=== PATIENT | male | born 1950 | race Caucasian/White ===

== ENCOUNTER 2019-08-04 02:04 | Emergency (ER) | payer MEDICARE, MEDICAID ==
[~2019-08-04] VITALS: Ht 175.3 cm; Wt 118.0 kg
[~2019-08-04 02:04] MED LIST: ALB0.5UD IH; ASPI-1265 PO; ATOR40TA PO; BECL8.7A3 IH; BUPR100T8 PO; CARB1TAB23 PO; CARI350T PO; DICY10CA88 PO; DOCU100C40 PO; ESCI20TA29 PO; HYDR-3965 PO; INSU100V36 SQ; LANTUS SQ; METF1000 PO; METH10TA4 PO; NITR12SP7 TL
[2019-08-04] MEDS ORDERED: normal saline 1000ML IV soln IVB ONE (02:20)
[2019-08-04] MEDS ORDERED: insulin regular, human 10 units/0.1 ml syringe SQ ONE ×2 (02:20→04:30)
[2019-08-04] MEDS ORDERED: methylPREDNISolone sod succ 125mg/2ml vial IV ONE (02:20)
[2019-08-04] MEDS: albuterol 2.5 MG/3 ML nebule NEB PRN ×2 (02:27→03:58)
[2019-08-04 03:36] LABS: ALANINE AMINOTRANSFERASE 37 U/L (12-78); ALBUMIN 3.5 G/DL (3.4-5.0); ALBUMIN/GLOBULIN RATIO 0.9 (1.1-1.5); ALKALINE PHOSPHATASE 54 IU/L (46-116); ASPARTATE AMINO TRANSFERASE 25 U/L (10-37); BILIRUBIN,TOTAL 1.3 MG/DL (0.1-1.0); BLOOD UREA NITROGEN 12 MG/DL (7-18); CALCIUM 8.7 MG/DL (8.5-10.1); CREATININE 1.33 MG/DL (0.60-1.10); GLUCOSE 281 MG/DL (70-104); TOTAL CARBON DIOXIDE 25.2 MMOL/L (24-32); TOTAL PROTEIN 7.5 G/DL (6.4-8.2); eGFR 54 ML/MIN
[2019-08-04 03:39] LABS: ANION GAP 10 (8-16); CHLORIDE 99 MMOL/L (99-107); SODIUM 134 MMOL/L (135-145)
[2019-08-04 03:44] LABS: BASOPHILS % (AUTO) 0.4 % (0-1); EOSINOPHILS # (AUTO) 0.1 X10'3 (0-0.9); EOSINOPHILS % (AUTO) 0.7 % (0-6); HEMATOCRIT 48.3 % (42.0-52.0); HEMOGLOBIN 16.4 g/dl (14.0-17.9); LYMPHOCYTES # (AUTO) 1.7 X10'3 (1.1-4.8); MEAN CORPUSCULAR HEMOGLOBIN 32.6 PG (27.0-31.0); MEAN CORPUSCULAR HGB CONC 33.9 g/dL (33.0-36.5); MEAN CORPUSCULAR VOLUME 96.1 FL (78-98); MEAN PLATELET VOLUME 6.8 FL (7.4-10.4); MONOCYTES # (AUTO) 0.7 X10'3 (0-0.9); MONOCYTES % (AUTO) 6.8 % (2-12); NEUTROPHILS # (AUTO) 7.2 X10'3 (1.8-7.7); NEUTROPHILS % (AUTO) 74.1 % (42-75); PLATELET COUNT 212 X10'3 (140-440); RED BLOOD COUNT 5.03 X10'6 (4.70-6.10); RED CELL DISTRIBUTION WIDTH 12.9 % (11.5-14.5); WHITE BLOOD COUNT 9.7 X10'3 (4.5-11.0)
[2019-08-04] MEDS ORDERED: ALBU6.7H9 INH (04:31)
[2019-08-04] MEDS ORDERED: PRED20TA PO (04:31)
[2019-08-04 04:51] VITALS: BP 130/63
== END 2019-08-04 04:53 | disposition home or self-care (01) ==
LOC: ER 02:04
DX: J44.1 Chronic obstructive pulmonary disease with (acute) exacerbation (principal); E11.65 Type 2 diabetes mellitus with hyperglycemia; R19.7 Diarrhea, unspecified; Z79.82 Long term (current) use of aspirin; Z79.4 Long term (current) use of insulin; Z79.899 Other long term (current) drug therapy
CPT/HCPCS: 36415; 71045; 80053; 82948; 84484; 85025; 87040; 93005; 94640; 96361; 96372; 96374; 99284; J1815; J2930; J7030; 94760

== ENCOUNTER 2020-05-26 16:52 | Emergency (ER) | payer BC, MEDICAID ==
[~2020-05-26] VITALS: Ht 175.3 cm; Wt 114.0 kg
[~2020-05-26 16:52] MED LIST changes: +ALBU6.7H9 INH
[2020-05-26 17:48] LABS: BASOPHILS # (AUTO) 0.1 X10'3 (0-0.2); BASOPHILS % (AUTO) 0.8 % (0-1); EOSINOPHILS # (AUTO) 0.2 X10'3 (0-0.9); EOSINOPHILS % (AUTO) 2.6 % (0-6); HEMATOCRIT 47.3 % (42.0-52.0); HEMOGLOBIN 16.1 g/dl (14.0-17.9); LYMPHOCYTES # (AUTO) 2.3 X10'3 (1.1-4.8); LYMPHOCYTES % (AUTO) 25.5 % (21-51); MEAN CORPUSCULAR HEMOGLOBIN 32.3 PG (27.0-31.0); MEAN CORPUSCULAR HGB CONC 33.9 g/dL (33.0-36.5); MEAN CORPUSCULAR VOLUME 95.1 FL (78-98); MEAN PLATELET VOLUME 6.8 FL (7.4-10.4); MONOCYTES # (AUTO) 0.7 X10'3 (0-0.9); MONOCYTES % (AUTO) 8.1 % (2-12); NEUTROPHILS # (AUTO) 5.7 X10'3 (1.8-7.7); PLATELET COUNT 242 X10'3 (140-440); RED BLOOD COUNT 4.98 X10'6 (4.70-6.10); RED CELL DISTRIBUTION WIDTH 13.1 % (11.5-14.5); WHITE BLOOD COUNT 9.1 X10'3 (4.5-11.0)
[2020-05-26 18:04] LABS: PARTIAL THROMBOPLASTIN TIME 26 SECONDS (22-32)
[2020-05-26 18:07] LABS: ALANINE AMINOTRANSFERASE 23 U/L (12-78); ALBUMIN 3.7 G/DL (3.4-5.0); ALKALINE PHOSPHATASE 48 IU/L (46-116); ANION GAP 12 (8-16); ASPARTATE AMINO TRANSFERASE 16 U/L (10-37); BILIRUBIN,TOTAL 0.5 MG/DL (0.1-1.0); BLOOD UREA NITROGEN 21 MG/DL (7-18); BUN/CREATININE RATIO 11.7 (5.4-32.0); CALCIUM 9.4 MG/DL (8.5-10.1); CHLORIDE 103 MMOL/L (99-107); CREATININE 1.79 MG/DL (0.60-1.10); GLUCOSE 196 MG/DL (70-104); POTASSIUM 4.2 MMOL/L (3.5-5.1); SODIUM 139 MMOL/L (135-145); TOTAL CARBON DIOXIDE 24.3 MMOL/L (24-32); TOTAL PROTEIN 7.3 G/DL (6.4-8.2); eGFR 38 ML/MIN
[2020-05-26 19:16] VITALS: BP 129/76
== END 2020-05-26 19:18 | disposition home or self-care (01) ==
LOC: ER 16:52
DX: R06.02 Shortness of breath (principal); R05 Cough; J44.9 Chronic obstructive pulmonary disease, unspecified; E11.9 Type 2 diabetes mellitus without complications; Z79.82 Long term (current) use of aspirin; Z79.4 Long term (current) use of insulin; Z79.899 Other long term (current) drug therapy
CPT/HCPCS: 36415; 71045; 80053; 83880; 85025; 85610; 85730; 93005; 99285

== ENCOUNTER 2020-05-28 21:43 | Emergency (ER) | payer BC, MEDICAID ==
[~2020-05-28] VITALS: Ht 175.3 cm; Wt 113.6 kg
[2020-05-28 22:16] LABS: BASOPHILS % (AUTO) 0.5 % (0-1); EOSINOPHILS # (AUTO) 0.2 X10'3 (0-0.9); EOSINOPHILS % (AUTO) 3.4 % (0-6); HEMATOCRIT 46.4 % (42.0-52.0); HEMOGLOBIN 15.5 g/dl (14.0-17.9); LYMPHOCYTES # (AUTO) 2.7 X10'3 (1.1-4.8); LYMPHOCYTES % (AUTO) 39.7 % (21-51); MEAN CORPUSCULAR HEMOGLOBIN 32.3 PG (27.0-31.0); MEAN CORPUSCULAR HGB CONC 33.5 g/dL (33.0-36.5); MEAN CORPUSCULAR VOLUME 96.4 FL (78-98); MEAN PLATELET VOLUME 6.7 FL (7.4-10.4); MONOCYTES # (AUTO) 0.8 X10'3 (0-0.9); MONOCYTES % (AUTO) 11.2 % (2-12); NEUTROPHILS # (AUTO) 3.1 X10'3 (1.8-7.7); NEUTROPHILS % (AUTO) 45.2 % (42-75); PLATELET COUNT 228 X10'3 (140-440); RED BLOOD COUNT 4.82 X10'6 (4.70-6.10); RED CELL DISTRIBUTION WIDTH 12.5 % (11.5-14.5); WHITE BLOOD COUNT 6.8 X10'3 (4.5-11.0)
[2020-05-28 22:24] LABS: ALANINE AMINOTRANSFERASE 22 U/L (12-78); ALBUMIN 3.7 G/DL (3.4-5.0); ALKALINE PHOSPHATASE 47 IU/L (46-116); ANION GAP 9 (8-16); ASPARTATE AMINO TRANSFERASE 18 U/L (10-37); BILIRUBIN,TOTAL 0.5 MG/DL (0.1-1.0); BLOOD UREA NITROGEN 16 MG/DL (7-18); BUN/CREATININE RATIO 10.6 (5.4-32.0); CALCIUM 8.8 MG/DL (8.5-10.1); CHLORIDE 105 MMOL/L (99-107); CREATININE 1.51 MG/DL (0.60-1.10); GLUCOSE 160 MG/DL (70-104); POTASSIUM 3.8 MMOL/L (3.5-5.1); SODIUM 141 MMOL/L (135-145); TOTAL CARBON DIOXIDE 27.2 MMOL/L (24-32); TOTAL PROTEIN 7.3 G/DL (6.4-8.2); eGFR 46 ML/MIN
[2020-05-28 23:00] VITALS: BP 125/75
[2020-05-28] MEDS ORDERED: DOCU-170 PO (23:03)
== END 2020-05-28 23:37 | disposition home or self-care (01) ==
LOC: ER 21:44
DX: G47.30 Sleep apnea, unspecified (principal); K59.00 Constipation, unspecified; J44.9 Chronic obstructive pulmonary disease, unspecified; E11.9 Type 2 diabetes mellitus without complications; Z79.899 Other long term (current) drug therapy; Z79.82 Long term (current) use of aspirin
CPT/HCPCS: 36415; 71045; 80053; 83880; 84484; 85025; 93005; 99285

== ENCOUNTER 2020-12-08 10:45 | Emergency (ER) | payer BC, MEDICAID ==
[~2020-12-08] VITALS: Ht 175.3 cm; Wt 113.6 kg
[~2020-12-08 10:45] MED LIST changes: +DOCU-170 PO
[2020-12-08] MEDS ORDERED: TETanus/Pertussis (Acell)/Diphther VAC/PF (Tdap-Adult) 0.5ml syringe IMVAC ONE (11:20)
[2020-12-08] MEDS ORDERED: CefTRIAXone 1000mg IM Kit (w/lidocaine diluent) IM ONE (11:20)
[2020-12-08] MEDS ORDERED: SULF1TAB49 PO (11:22)
[2020-12-08] MEDS ORDERED: CEPH-585 PO (11:22)
[2020-12-08] MEDS ORDERED: prednisone 10mg tablet PO SCH (11:25)
[2020-12-08 12:40] VITALS: BP 125/77
[2020-12-08] MEDS ORDERED: acetaminophen 325mg tablet PO ONE (12:50)
[2020-12-08] MEDS ORDERED: predniSONE 20 mg tablet PO SCH (13:00)
== END 2020-12-08 14:00 | disposition home or self-care (01) ==
LOC: ER 10:46
DX: L03.031 Cellulitis of right toe (principal); R23.4 Changes in skin texture; J44.9 Chronic obstructive pulmonary disease, unspecified; E11.9 Type 2 diabetes mellitus without complications; Z79.899 Other long term (current) drug therapy; Z79.82 Long term (current) use of aspirin; Z79.4 Long term (current) use of insulin
CPT/HCPCS: 82948; 90471; 90715; 96372; 99284; J0696; J7512

== ENCOUNTER 2022-12-28 04:53 | Emergency (ER) | payer BC, MEDICAID ==
[~2022-12-28] VITALS: Ht 175.3 cm; Wt 113.0 kg
[~2022-12-28 04:53] MED LIST changes: +ALBU6.7H14 INH; -ALBU6.7H9 INH; -BUPR100T8 PO; +CARB-395 PO; -CARB1TAB23 PO; +[UNRECOGNIZED DRUG - CODE] PO
[2022-12-28] MEDS ORDERED: normal saline 1000ML IV soln IVB ONE (07:10)
[2022-12-28] MEDS ORDERED: LORazepam 2 mg/ml vial IV ONE (07:10)
[2022-12-28] MEDS ORDERED: ondansetron/PF 4mg/2ml inj IV ONE ×3 (07:10→11:25)
[2022-12-28] MEDS ORDERED: aspirin 325mg tablet PO ONE (07:25)
[2022-12-28] MEDS ORDERED: nitroGLYCERIN 1gm ointment UD TP ONE (07:25)
[2022-12-28] MEDS: morphine 4 MG/ML inj SYRINge IV PRN ×2 (08:05→10:48)
--- NOTE | 2022-12-28 08:21 | NUR ---
IV to [facility] is not patent - it was removed and new IV started in [facility]
[2022-12-28 08:36] LABS: BASOPHILS % (AUTO) 0.4 % (0-1); EOSINOPHILS # (AUTO) 0.1 X10'3 (0-0.9); EOSINOPHILS % (AUTO) 1.3 % (0-6); HEMATOCRIT 46.5 % (42.0-52.0); HEMOGLOBIN 15.8 g/dl (14.0-17.9); LYMPHOCYTES # (AUTO) 1.6 X10'3 (1.1-4.8); LYMPHOCYTES % (AUTO) 22.4 % (21-51); MEAN CORPUSCULAR HEMOGLOBIN 32.6 PG (27.0-31.0); MEAN CORPUSCULAR VOLUME 95.9 FL (78-98); MEAN PLATELET VOLUME 6.6 FL (7.4-10.4); MONOCYTES # (AUTO) 0.6 X10'3 (0-0.9); MONOCYTES % (AUTO) 8.8 % (2-12); NEUTROPHILS # (AUTO) 4.8 X10'3 (1.8-7.7); NEUTROPHILS % (AUTO) 67.1 % (42-75); PLATELET COUNT 212 X10'3 (140-440); RED BLOOD COUNT 4.84 X10'6 (4.70-6.10); RED CELL DISTRIBUTION WIDTH 13.2 % (11.5-14.5); WHITE BLOOD COUNT 7.2 X10'3 (4.5-11.0)
[2022-12-28 08:46] LABS: ALANINE AMINOTRANSFERASE 36 U/L (12-78); ALBUMIN 3.4 G/DL (3.4-5.0); ANION GAP 12 (8-16); ASPARTATE AMINO TRANSFERASE 33 U/L (10-37); BILIRUBIN,TOTAL 0.7 MG/DL (0.1-1.0); BLOOD UREA NITROGEN 21 MG/DL (7-18); BUN/CREATININE RATIO 19.3 (10.0-20.0); CALCIUM 9.6 MG/DL (8.5-10.1); CHLORIDE 103 MMOL/L (99-107); CREATININE 1.09 MG/DL (0.60-1.10); GLUCOSE 122 MG/DL (70-104); POTASSIUM 4.2 MMOL/L (3.5-5.1); SODIUM 141 MMOL/L (135-145); TOTAL CARBON DIOXIDE 25.8 MMOL/L (24-32); TOTAL PROTEIN 6.8 G/DL (6.4-8.2); eGFR 67 ML/MIN
--- NOTE | 2022-12-28 08:53 | NUR ---
PT REPORTS DECREASE IN ABD PAIN - HE IS GIVEN WATER AND BED IS ADJUSTED.
[2022-12-28 08:55] LABS: ALKALINE PHOSPHATASE 38 IU/L (46-116); LIPASE 141 U/L (73-393)
[2022-12-28 08:58] LABS: D-DIMER 0.38 MG/L FEU (0-0.50)
[2022-12-28 10:01] LABS: CLARITY,URINE CLEAR (Clear); COLOR,URINE YELLOW (Yellow); GLUCOSE, URINE 500 mg/dl (Neg); KETONES,URINE >=80 mg/dl (Neg); LEUKOCYTE ESTERASE ,URINE NEGATIVE (Neg); NITRITES, URINE NEGATIVE (Neg); OCCULT BLOOD,URINE NEGATIVE (Neg); PROTEIN,URINE NEGATIVE (Neg); UROBILINOGEN,URINE 0.2 E.U/dL (0.2-1.0)
[2022-12-28 10:02] LABS: UA COLLECTION TYPE VOIDED
[2022-12-28] MEDS ORDERED: LORA-269 PO (11:04)
[2022-12-28 11:33] VITALS: BP 163/90
--- NOTE | 2022-12-28 11:41 | NUR ---
PT STATES THAT HE IS NOT COMFORTABLE WITH DISCHARGE. PT STATES HAVING SOB AND ABD PAIN. PT REQ TO SPEAK TO RN WILL ADMIN ZOFRAN AND NOTIFY DR MIRANDA.
--- NOTE | 2022-12-28 11:48 | NUR ---
RN NOTIFIED DR MIRANDA THAT PT WAS NOT COMFORTABLE WITH DISCHARGE. PER DR MIRANDA HE WILL SPEAK TO PT.
[2022-12-28] MEDS ORDERED: simethicone 80mg chew tab PO ONE (12:00)
--- NOTE | 2022-12-28 12:15 | NUR ---
DR MIRANDA SAW PT AND PT IS NOW AGREEING TO BE DISCHARGED.
--- NOTE | 2022-12-28 12:30 | NUR ---
PT IS DISCHARGED HOWEVER HIS RIDE WILL NOT BE HERE UNTIL 1330 AND PT C/O STILL BEING DIZZY. RN NOTIFIED DR MIRANDA AND CHARGE GRANT. PER GRANT PT WILL BE KEPT IN [place] [facility] UNTIL HIS RIDE ARRIVES. GRANT WILL DETERMINE BEST RM TO KEEP PT AND MOVE HIM THERE.
== END 2022-12-28 13:30 | disposition home or self-care (01) ==
LOC: ER 04:53
DX: R06.02 Shortness of breath (principal)
CPT/HCPCS: 36415; 71045; 74176; 80053; 81003; 83690; 84484; 85025; 85379; 93005; 96361; 96374; 96375; 96376; 99285; J2060; J2270; J2405; J7030

== ENCOUNTER 2023-04-20 09:38 | Emergency (ER) | payer BC, MEDICAID ==
[~2023-04-20] VITALS: Ht 175.3 cm; Wt 116.8 kg
[~2023-04-20 09:38] MED LIST changes: +LORA-269 PO
[2023-04-20 09:49] VITALS: BP 180/92; PULSE 93; RESP 19; TEMP 98.2; O2SAT 97
[2023-04-20] MEDS ORDERED: HYDROcodone/acetaminophen 10/325mg tab PO ONE (10:40)
[2023-04-20] MEDS ORDERED: HYDR-3973 PO ×2 (11:56)
[2023-04-20] MEDS ORDERED: HYDR-3965 PO (17:01)
== END 2023-04-20 12:25 | disposition home or self-care (01) ==
LOC: ER 09:39
DX: S42.102A Fracture of unspecified part of scapula, left shoulder, initial encounter for closed fracture (principal); S42.012A Anterior displaced fracture of sternal end of left clavicle, initial encounter for closed fracture; J44.9 Chronic obstructive pulmonary disease, unspecified; E11.9 Type 2 diabetes mellitus without complications; Z79.82 Long term (current) use of aspirin; Z79.899 Other long term (current) drug therapy; X58.XXXA Exposure to other specified factors, initial encounter; Y93.89 Activity, other specified; Y92.89 Other specified places as the place of occurrence of the external cause; Y99.8 Other external cause status
CPT/HCPCS: 73030; 73200; 99284; A4565

== ENCOUNTER 2023-05-11 11:14 | Emergency (ER) | payer BC, MEDICAID ==
[~2023-05-11] VITALS: Ht 175.3 cm; Wt 118.2 kg
[~2023-05-11 11:14] MED LIST changes: -ALB0.5UD IH; -ALBU6.7H14 INH; -ASPI-1265 PO; -ATOR40TA PO; -BECL8.7A3 IH; -CARB-395 PO; -CARI350T PO; -DICY10CA88 PO; -DOCU-170 PO; -DOCU100C40 PO; -ESCI20TA29 PO; +FLO0.4C PO; -HYDR-3965 PO; +HYDR-3972 PO; +INSU100I29 SQ; -INSU100V36 SQ; -LANTUS SQ; +LISI20TA28 PO; -LORA-269 PO; -METF1000 PO; -METH10TA4 PO; -NITR12SP7 TL; +OMEG-220 PO; +SEMA2PEN SQ; +UMEC1DIS INH; -[UNRECOGNIZED DRUG - CODE] PO
[2023-05-11 11:25] VITALS: TEMP 97.7
[2023-05-11 11:57] LABS: BASOPHILS % (AUTO) 0.6 % (0-1); EOSINOPHILS % (AUTO) 0.7 % (0-6); HEMATOCRIT 46.9 % (42.0-52.0); HEMOGLOBIN 15.8 g/dl (14.0-17.9); LYMPHOCYTES % (AUTO) 22.8 % (21-51); MEAN CORPUSCULAR HEMOGLOBIN 31.7 PG (27.0-31.0); MEAN CORPUSCULAR HGB CONC 33.7 g/dL (33.0-36.5); MEAN CORPUSCULAR VOLUME 94.2 FL (78-98); MEAN PLATELET VOLUME 7.6 FL (7.4-10.4); MONOCYTES # (AUTO) 0.6 X10'3 (0-0.9); MONOCYTES % (AUTO) 13.4 % (2-12); NEUTROPHILS # (AUTO) 2.7 X10'3 (1.8-7.7); NEUTROPHILS % (AUTO) 62.5 % (42-75); PLATELET COUNT 193 X10'3 (140-440); RED BLOOD COUNT 4.98 X10'6 (4.70-6.10); RED CELL DISTRIBUTION WIDTH 13.8 % (11.5-14.5); WHITE BLOOD COUNT 4.3 X10'3 (4.5-11.0)
[2023-05-11 12:18] LABS: ALANINE AMINOTRANSFERASE 36 U/L (12-78); ALBUMIN 3.2 G/DL (3.4-5.0); ALBUMIN/GLOBULIN RATIO 0.8 (1.1-1.5); ALKALINE PHOSPHATASE 71 IU/L (46-116); ANION GAP 12 (8-16); ASPARTATE AMINO TRANSFERASE 43 U/L (10-37); BILIRUBIN,TOTAL 0.9 MG/DL (0.1-1.0); BLOOD UREA NITROGEN 12 MG/DL (7-18); BUN/CREATININE RATIO 10.1 (10.0-20.0); CALCIUM 8.9 MG/DL (8.5-10.1); CHLORIDE 97 MMOL/L (99-107); CREATININE 1.19 MG/DL (0.60-1.10); GLUCOSE 290 MG/DL (70-104); POTASSIUM 4.1 MMOL/L (3.5-5.1); SODIUM 131 MMOL/L (135-145); TOTAL PROTEIN 7.1 G/DL (6.4-8.2); eCRCL 58 ML/MIN; eGFR 60 ML/MIN
[2023-05-11 12:30] LABS: PRO BRAIN NATRIURETIC PEPTIDE 105 PG/ML (0-125)
[2023-05-11] MEDS ORDERED: ondansetron 4mg rapidly disintigrating tab PO ONE (15:35)
[2023-05-11] MEDS ORDERED: LORazepam 1 MG tablet PO ONE (15:35)
[2023-05-11] MEDS ORDERED: LORazepam 2 mg/ml vial IV ONE (16:05)
[2023-05-11] MEDS ORDERED: LIDOcaine Viscous 15ml cup MM ONE (16:05)
[2023-05-11] MEDS ORDERED: normal saline 1000ML IV soln IVB ONE (16:05)
[2023-05-11] MEDS ORDERED: morphine 4 MG/ML inj SYRINge IV ONE (16:05)
[2023-05-11] MEDS ORDERED: mag hydrox/Alum hydrox/simeth 30ml oral suspension PO ONE (16:05)
[2023-05-11] MEDS ORDERED: ondansetron/PF 4mg/2ml inj IV ONE (16:05)
[2023-05-11] MEDS ORDERED: pantoprazole 40 MG vial IV ONE (16:05)
[2023-05-11] MEDS ORDERED: iohexol 300mg/ml 100ml inj. ONE ×2 (16:18→16:56)
[2023-05-11] MEDS ORDERED: pantoprazole 40MG/NS 100ML BAG 100 ML IV ONE (16:45)
[2023-05-11] MEDS ORDERED: iohexol 350MG/ML 100ml bottle IV ONE (16:54)
[2023-05-11 22:17] VITALS: BP 136/85; PULSE 65; RESP 18; O2SAT 93
== END 2023-05-11 22:25 | disposition home or self-care (01) ==
LOC: ER 11:14
DX: R10.9 Unspecified abdominal pain (principal); F41.9 Anxiety disorder, unspecified
CPT/HCPCS: 36415; 71045; 74177; 80053; 82948; 83880; 84484; 85025; 93005; 96365; 96366; 96375; 99285; C9113; J2060; J2270; J2405; J3490; J7030; Q9967